=== PATIENT | male | born 1945 | race Caucasian/White ===

== ENCOUNTER 2018-01-28 10:59 | Outpatient (CLI) | payer MEDICARE, OTHER ==
--- NOTE | 2018-01-28 11:56 | RAD ---
CHEST PA AND LATERAL: History: 72-year-old male with history of dyspnea. Comparison: 04-18-15 FINDINGS: Extensive bilateral linear interstitial and reticular nodular and honeycombing changes are noted thro ughout both lungs, somewhat more prominently in the bases. The honeycombing in the bases does appear to be progressive when compared to the prior 04-18-15 study. Bullous changes noted, particularly in the left apex and upper lobe. IMPRESSION: Extensive bilateral chronic lung changes with some progressive honeycombing in the bases. No signific ant new process. POS: [facility]
== END 2018-01-28 11:00 | disposition home or self-care (01) ==
LOC: RAD 10:59
PROVIDERS: ATTEND Internal Medicine Pulmonary Disease
DX: R06.00 Dyspnea, unspecified (principal)
CPT/HCPCS: 71046

== ENCOUNTER 2018-05-25 13:02 | Outpatient (CLI) | payer MEDICARE, OTHER ==
--- NOTE | 2018-05-25 13:42 | CT ---
Exam: CT chest without contrast per low-dose cancer screening protocol HISTORY: History of smoking and nicotine dependence; shortness of breath and wheezing COMPARISON: None TECHNIQUE: Multiple contiguous axial images were obtained in a CT of the chest without contrast per l ow-dose cancer screening protocol. Sagittal and coronal reformats were performed. FINDINGS: Severe emphysematous changes are seen in the lungs. Increased interstitial lung markings are seen in the bilateral lower lobes. No focal infiltrates are seen. Pulmonary nodules: Scattered calcified granulomas are seen in the lungs. There is a 1.3 cm spiculated mass in the right lower lobe on image 129 at 235. There is a 1.4 cm area of nodular opacity adjacent to the right major fissure on image 87 of 238 whic h may represent scarring. Pleural space: No pneumothorax or pleural effusion are seen. Heart: The heart is normal in size. Mediastinum: No hilar or mediastinal lymphadenopathy appreciated on this limited noncontrast examinat ion. There are calcified right hilar and mediastinal lymph nodes. Bones: Degenerative changes are seen in the spine.. Visualized subdiaphragmatic structures: Calcifications in the spleen are from prior granulomatous dis ease.. IMPRESSION: Lung RADS category 4A-suspicious. A PET CT should be performed to evaluate for hypermetabolic activit y in the right lower lobe pulmonary nodule.
== END 2018-05-25 13:03 | disposition home or self-care (01) ==
LOC: CT 13:02
PROVIDERS: ATTEND Family Medicine
DX: Z00.00 Encounter for general adult medical examination without abnormal findings (principal); F17.211 Nicotine dependence, cigarettes, in remission
CPT/HCPCS: G0297

== ENCOUNTER → 2018-06-17 | Day surgery (SDC) | payer MEDICARE, OTHER ==
[2018-06-16 14:18] VITALS: BMI 22.0
[~2018-06-17] MED LIST: PROPOFOL 200 MG/20 ML VIAL ONE
--- NOTE | 2018-06-17 17:09 | OP ---
DATE OF PROCEDURE: 06/17/2018 PREPROCEDURE DIAGNOSIS: Screening colonoscopy. PROCEDURE PERFORMED: Colonoscopy with biopsy of ileocecal valve and hot snare polypectomy of sigmoid colon polyp. FINDINGS: 1. Atypical appearing ileocecal valve, likely lipomatous, biopsied to rule out adenomatous change. 2. 7-mm semipedunculated sigmoid colon polyp, removed by hot snare polypectomy. ANESTHESIA: TIVA. RECOMMENDATIONS: Await histopathology. Repeat colonoscopy in 5 years if this is adenoma. DESCRIPTION OF PROCEDURE: The patient was informed of the risks, benefits, and possible complications of endoscopy including perforation, reaction to medication, and aspiration. Informed consent was obtained. The patient was brought to the endoscopy suite, where he was sedated in a gradual fashion. Once he was comfortable, rectal exam performed which was normal. The endoscope was advanced through the anal canal and through the colon to the cecum, which was identified by the ileocecal valve and appendiceal orifice. The ileocecal valve was a little bit atypical in appearance. Retroflexed views appeared normal. There was some slight concern that maybe this was some adenomatous change in the bowel, so it was biopsied, but after biopsying, it appeared to be this is all probably just lipomatous, that was submitted to Pathology. The scope was then slowly removed through the remainder of the colon. There were a few diverticula scattered throughout the colon, but nonbleeding. No inflammation was seen. In the sigmoid colon, there was a 6-mm semipedunculated polyp that appeared adenoma. This was removed by hot snare polypectomy with good hemostasis. Retroflexed views in the rectum were normal. The scope was removed. The patient tolerated the procedure well. There were no complications. Job ID: [id number]
== END ==
LOC: SDC 07:39
PROVIDERS: ATTEND Internal Medicine Gastroenterology
PROC: 0DBC8ZX Excision of Ileocecal Valve, Via Natural or Artificial Opening Endoscopic, Diagnostic (ICD-10-PCS; principal; 2018-06-17)
PROC: 0DBE8ZZ Excision of Large Intestine, Via Natural or Artificial Opening Endoscopic (ICD-10-PCS; 2018-06-17)
DX: Z12.11 Encounter for screening for malignant neoplasm of colon (principal); D12.5 Benign neoplasm of sigmoid colon; K57.30 Diverticulosis of large intestine without perforation or abscess without bleeding; J44.9 Chronic obstructive pulmonary disease, unspecified; M19.90 Unspecified osteoarthritis, unspecified site; Z79.899 Other long term (current) drug therapy; Z87.891 Personal history of nicotine dependence
CPT/HCPCS: 88305; J2704

== ENCOUNTER 2018-07-02 10:49 | Outpatient (CLI) | payer MEDICARE, OTHER ==
--- NOTE | 2018-07-02 14:58 | PET ---
PET CT: HISTORY: Right lower lobe lung mass on low-dose CT scan of 05/25/2018. TECHNIQUE: PET scanning with attenuation correction was performed from the base of the brain through the proxima l thighs following the intravenous administration of 12.4 mCi [id number] in the left wris t. COMPARISON: None. CORRELATION: LDCT of 05/25/2018. FINDINGS: There is hypermetabolic activity in the 13 mm right lower lobe lung nodule noted on the CT scan with an SUV of 3.1, suspicious for malignancy. No other hypermetabolic pulmonary nodules or masses are se en. There are foci of increased uptake in the parotid glands bilaterally with an SUV of 18 on the right a nd 5 on the left. No matias hypermetabolism is seen in the neck, mediastinum, hilar regions, axillae, abdomen, or pelvis . No hypermetabolic liver, adrenal, or skeletal lesions are seen. There is physiologic activity in the GI and tracts and the visualized portions of the brain. The CT scan used for CT attenuation correction demonstrates no evidence of pleural effusions or ascit es. IMPRESSION: 1. Findings suspicious for right lower lobe malignancy. 2. Hypermetabolic lesions in the parotid glands should be evaluated with contrast-enhanced CT scan o f the neck. 3. No evidence of distant metastases. POS: [facility]
== END 2018-07-02 10:50 | disposition home or self-care (01) ==
LOC: PET 10:49
PROVIDERS: ATTEND Family Medicine
DX: J98.4 Other disorders of lung (principal); K11.8 Other diseases of salivary glands
CPT/HCPCS: 78815; A9552

== ENCOUNTER 2018-07-19 13:30 | Inpatient (IN) | payer MEDICARE, OTHER ==
[~2018-07-19 13:30] MED LIST changes: +ISOVUE-370 76%-LOCM 1 ML ONE; -PROPOFOL 200 MG/20 ML VIAL ONE
[2018-07-19] MEDS ORDERED: Lorazepam 2 MG/ML VIAL ONE ×2 (15:08→15:10)
--- NOTE | 2018-07-19 15:54 | PDOC.FPRHP ---
- History of Present Illness Chief Complaint: SOB History of Present Illness: 72 yo M who presents as a transfer of care from [facility] for persistent O2 requirement and breathlessness. He reports he first started to have symptoms a few years ago and they have progressively worsened despite stopping smoking. He' s typically on 2L NC. He has had worsening shortness of breath for 1 week but acutely worsened last night. Slight cough. Chills last night. He is on budesonide and performist scheduled BID and has albuterol PRN - often uses once a day. ED Course: ASA, Lasix 40 IV, Mg 2g, Solumedrol 125mg, Duoneb, Albuterol 5, Ativan 0.5 Trop neg x2 - Allergies/Adverse Reactions Allergies Allergy/AdvReac Type Severity Reaction Status Date / Time No Known Allergies Allergy Verified 07/19/18 17:35 - Home Medications Medication Instructions Recorded Confirmed Type Albuterol Sulfate [Ventolin Hfa] 1 puff INH BID 06/16/18 07/19/18 History Budesonide 1 vial INH BID 07/19/18 07/19/18 History Formoterol Fumarate [Perforomist] 1 vial INH BID 07/19/18 07/19/18 History - History PMHx: COPD PSHx: Knee surgery, vasectomy, shrapnel removal FHx: Mom - HTN Social: 50-75 pack year smoking history, 1 shiner/day, no drug use - Review of Systems General: reports: fever/chills, fatigue Eyes: denies: eye pain, vision changes ENT: reports: other (endorses sore throat, voice changes). denies: nasal congestion, rhinorrhea Respiratory: reports: cough, congestion, shortness of breath, exercise intolerance Cardiovascular: denies: chest pain, palpitation Gastrointestinal: denies: nausea, vomiting, diarrhea Genitourinary: denies: incontinence, dysuria Skin: denies: rashes, lesions Musculoskeletal: reports: arthritis/arthralgias. denies: pain, swelling Neurological: reports: weakness. denies: syncope - Vital signs BP: 118/79 HR: 82 RR: 28 Tmax: 97.7 Pox: 96% on 2L Wt: 70kg - Physical Exam Constitutional: NAD, awake, alert and oriented, well developed HEENT: normocephalic and atraumatic, conjunctiva clear, no scleral icterus, grossly normal hearing, oropharynx clear, other (dry MM) Neck: supple, trachea midline Heart: RRR, pulses present, no edema Lungs: other (diminished air movement with RLL crackles) Abdomen: soft, non-tender, bowel sounds present Musculoskeletal: normal structure, normal tone, ROM grossly normal Neurological: no focal deficit Skin: no rash/lesions Heme/Lymphatic: no unusual bruising or bleeding Psychiatric: normal mood and affect, good judgment and insight, intact recent and remote memory FMR H&P: Results - EKG Interpretation EKG: Normal sinus rhythm, Rate (beats per minute): 74, with no ectopics, Interpretation: normal EKG, Conduction normal, ST segments normal, T waves normal, [place] normal, Other findings include:, Possible left atrial enlargement, OK interval 168 ms QRS duration 94 ms QT/QTc 410/455 ms. - Radiology Interpretation Chest x-ray Status: image reviewed by me, report reviewed by me Additional comment: Enlarging bilateral effusions FMR H&P: A/P - Problem List (1) Acute and chronic respiratory failure with hypoxia Current Visit: Yes Status: Acute Code(s): J96.21 - ACUTE AND CHRONIC RESPIRATORY FAILURE WITH HYPOXIA (2) COPD (chronic obstructive pulmonary disease) Current Visit: Yes Status: Acute (3) Pleural effusion Current Visit: Yes Status: Acute Code(s): J90 - PLEURAL EFFUSION, NOT ELSEWHERE CLASSIFIED (4) Lung cancer Current Visit: Yes Status: Acute Code(s): C34.90 - MALIGNANT NEOPLASM OF UNSP PART OF UNSP BRONCHUS OR LUNG (5) Parotid gland enlargement Current Visit: Yes Status: Acute Code(s): K11.1 - HYPERTROPHY OF SALIVARY GLAND - Plan 72yo male with pmh of COPD presenting for acute on Chronic hypoxic respiratory failure Acute on Chronic hypoxic respiratory failure 2/2 COPD exacerbation vs enlarging b/l pleural effusions - SpO2 in 70's on RA. Currently 96% on 3L. Tachypneic - Continue supplemental O2, wean as tolerated. Maintain Sats 88-92% - CT on 05/25/18 and PET scan on 06/02/18 with no pleural effusions. - CXR today: RLL nodule, b/l effusions. Severe fibrosis - Continue home COPD meds - Duonebs q4h ROSCOE, prednisone and azithromycin for 5 day course - Admit to medical Worsening pleural effusions, suspected lung cancer - Mass in RLL seen on CT and PET 06/2018 - Following with Dr Haines outpt. No biopsy preformed yet. - Consult Pulm in AM - Ordered CT with contrast DVT ppx: SCDs Code Status: PCP: Dr Haji FMR H&P: Upper Level - Pertinent history 72 yo M patient with PMHx COPD who presents with acute worsening of shortness of breath over last week, especially since last night. Denies fever or sputum production. Increased O2 requirement reported in [place]. - Pertinent findings VSS apart from mild tachypnea CXR: BL pleural effusion Gen: awake, alert, oriented HEENT: NCAT, MMM CV: RRR, no murmur RESP: tachypneic, poor air entry diffusely ABD: belly breathing, nondistended, bowel sounds present EXT: no edema or cyanosis - Plan Date/Time: 07/19/18 1554 72 yo M here with COPD exacerbation and newly worsening BL pleural effusions 1. COPD exacerbation - Continue duonebs, steroids, abx - Will notify pulm he is here 2. Newly worsening pleural effusions - CT for newly worsening pleural effusions - Will notify pulm in a.m. - Concern for malignant effusion with h/o "spot" he was told about by Dr. Haines 3. RLL pulmonary nodule - Possible associated malignant effusion - Mgmt as above Please see Dr. De Leon' note for remainder of A/P I, Yessy Alejandro MD, PGY-3, have evaluated this patient and agree with findings/ plan as outlined by director internal control resident. Pertinent changes/additions are listed here.
[2018-07-19] MEDS ORDERED: Ondansetron ODT 4 MG TAB SL PRN (17:26)
[2018-07-19] MEDS ORDERED: Acetaminophen 325 MG TAB PO PRN ×2 (17:26→18:00)
[2018-07-19] MEDS ORDERED: Ondansetron PF 4 MG/2 ML Vial IVP PRN (17:26)
[2018-07-19 17:28] VITALS: BMI 20.7
[2018-07-19] MEDS ORDERED: Azithromycin 200 MG/5 ML Oral Suspension PO SCH (18:30)
--- NOTE | 2018-07-19 19:03 | CT ---
CT THORAX WITH CONTRAST: DATE: 07/19/2018 HISTORY: 72-year-old male with right lower lobe lung cancer COMPARISON: 05/25/2018 FINDINGS: Very severe emphysematous changes throughout the bilateral upper lobes, with lung tissue destroyed an d replaced by numerous large bullae. Severe emphysematous changes in the bilateral lower lobes. Noncalcified, spiculated, approximately 11 x 7 x 10 mm pulmonary nodule in superior segment of right lower lobe (measurements are inexact because of the irregular margins. Axial image 37 of 68, series 3; coronal image 104 of 136, series 601). This was mildly hypermetabolic on PET scan. It has not sign ificant changed. In the right lower lobe, abutting the minor fissure, there is another spiculated noncalcified pulmona ry nodule measuring 9 x 7 x 7 mm. Although its morphology is suspicious for lung cancer, it was not hypermetabolic on the PET scan. Perhaps it is too small for FDG uptake. There are other lesions that have the appearance of focal nodules on axial images, but are demonstrat ed to be flat and craniocaudally thin on coronal reconstructions, along fissures, representing scar and intrapulmonary lymph nodes. No thoracic aortic aneurysm. No adrenal nodule. No hepatosplenomegaly. No cardiomegaly or pericardial effusion. No mediastinal or hilar lymphadenopathy. No pleural effusion or pneumothorax. IMPRESSION: 1) spiculated pulmonary nodule in superior segment of right lower lobe, mildly hypermetabolic: Eviden ce for lung cancer. 2) another spiculated pulmonary nodule in the right middle lobe, which was not hypermetabolic on PET scan, perhaps too small for FDG uptake. This is suspicious for second lung cancer. 3) very severe emphysema. 4) no interval change overall since 05/25/2018
[2018-07-19] MEDS: Arformoterol 15 MCG/2 ML NEB NEB SCH (19:27)
[2018-07-19] MEDS: Budesonide 0.5 MG/2 ML NEB NEB SCH (19:27)
[2018-07-20 05:27] LABS: #Basophils 0.1 thou/uL (0.0-0.2); #Lymphocytes 1.9 thou/uL (1.20-3.40); %Basophils 0.5 % (0.0-1.0); %Eosinophils 0.1 % (0.0-10.0); %Lymphocytes 14.7 % (21.0-51.0); %Monocytes 7.7 % (0.0-10.0); %Neutrophils 77.1 % (42.0-75.0); Mean Corpuscular HGB CONC 34.2 g/dL (32.0-36.0); Mean Corpuscular Volume 99.6 fL (78.0-98.0); Mean Platelet Volume 10.1 fL (7.4-10.4); Platelet Count 181 thou/uL (130-400); RBC Distribution Width 12.8 % (11.5-14.5); Red Blood Cell (RBC) Count 4.69 mill/uL (4.70-6.10)
[2018-07-20 05:52] LABS: Anion Gap 15 mmol/L (10-20); BUN (Urea Nitrogen) 15 mg/dL (8.4-25.7); Calc. Creatinine Clearance 48 mL/min (70-130); Carbon Dioxide 25 mmol/L (23-31); Chloride 102 mmol/L (98-107); Estimated GFR-MDRD 59; Glucose 119 mg/dL (83-110); Sodium 138 mmol/L (136-145)
--- NOTE | 2018-07-20 07:28 | PDOC.FM ---
- Subjective Subjective: reports breathing improved. still needing more O2 than normal but feels much better. No cough, no fevers. - Objective Vital Signs & Weight: Vital Signs (12 hours) Temp Pulse Resp BP Pulse Ox 07/20/18 04:00 97.7 F 81 20 107/63 95 07/20/18 02:26 74 18 94 L 07/20/18 00:00 98.4 F 82 20 112/68 95 07/19/18 23:19 79 18 96 07/19/18 19:49 97.6 F 78 20 122/76 96 07/19/18 19:39 96 Weight Weight 61.745 kg I&O: 07/19/18 07/20/18 07/21/18 06:59 06:59 06:59 Intake Total 490 Output Total 450 Balance 40 Result Diagrams: 07/20/18 04:48 07/20/18 04:48 Phys Exam - Physical Examination Constitutional: NAD HEENT: PERRLA, moist MMs, sclera anicteric bibasilar crackles Cardiovascular: RRR, no significant murmur Gastrointestinal: soft, non-tender Musculoskeletal: no edema Psychiatric: normal affect, A&O x 3 Skin: cap refill <2 seconds Dx/Plan (1) Acute and chronic respiratory failure with hypoxia Code(s): J96.21 - ACUTE AND CHRONIC RESPIRATORY FAILURE WITH HYPOXIA Status: Acute (2) COPD (chronic obstructive pulmonary disease) Status: Acute (3) Lung cancer Code(s): C34.90 - MALIGNANT NEOPLASM OF UNSP PART OF UNSP BRONCHUS OR LUNG Status: Acute (4) Parotid gland enlargement Code(s): K11.1 - HYPERTROPHY OF SALIVARY GLAND Status: Acute (5) Pleural effusion Code(s): J90 - PLEURAL EFFUSION, NOT ELSEWHERE CLASSIFIED Status: Acute - Plan Plan: 72yo male with pmh of COPD presenting for acute on Chronic hypoxic respiratory failure Acute on Chronic hypoxic respiratory failure 2/2 COPD exacerbation vs enlarging b/l pleural effusions - SpO2 in 70's on RA in ED. - Non hypoxic on 3.5 L (baseline 2L) - Continue mgmt of COPD exacerbation with prednisone, azithromycin, duonebs - Initial CXR with worsening pleural effusions, CT repeat, no mention of this - Followed by Dr. Haines outpatient, will consult pulm in case worsening of respiratory status & worsening of pleural effusions due to pulmonary nodule related findings - CT on 05/25/18 and PET scan on 06/02/18 with no pleural effusions. - Continue home COPD meds Worsening pleural effusions, suspected lung cancer - Mass in RLL seen on CT and PET 06/2018 - Following with Dr Zaki lopez. No biopsy preformed yet. Patient reports plan are for repeat imaging in December - Consulted pulm, recs apprecaited - will discuss administration of lasix x1 since pt with bibasilar crackles DVT ppx: SCDs Code Status: Full PCP: Dr Haji Addendum - Attending - Attending Attestation Date/Time: 07/20/182113 I personally evaluated the patient and discussed the management with Dr. Layne. I agree with the History, Examination, Assessment and Plan documented above with any addition or exceptions noted below. The patient is still short of breath speaking in 2-3 word sentences between breaths. Will continue nebs, steroids. Consulting pulmonology with the lung nodule and pleural effusions. Will also give a dose of IV lasix to see if this helps. Pt is requiring O2 at this time.
[2018-07-20] MEDS: Budesonide 0.5 MG/2 ML NEB NEB SCH ×2 (07:49→18:16)
[2018-07-20] MEDS: Arformoterol 15 MCG/2 ML NEB NEB SCH ×2 (07:50→18:16)
[2018-07-20] MEDS ORDERED: predniSONE 20 MG TAB PO SCH (08:00)
[2018-07-20] MEDS: Enoxaparin Sodium 40 MG/0.4 ML SYRINGE SC SCH (09:52)
[2018-07-20] MEDS ORDERED: Furosemide 40 MG/4 ML VIAL SLOW IVP SCH (11:00)
[2018-07-20 12:38] LABS: Folate (Folic Acid) 14.9 ng/mL (7.0-31.4)
--- NOTE | 2018-07-20 14:01 | HP ---
ADDENDUM: Addendum to the history and physical Please see the note from Dr. Kim De Leon, for which I agree. The patient was seen, evaluated, discussed, and examined with the residents by bedside. HISTORY OF PRESENT ILLNESS: This is a 72-year-old gentleman who is being evaluated by Dr. Haines for a lung mass and felt like suspicious right lower lobe malignancy based on recent PET scan, comes in with COPD exacerbation, coughing, wheezing, and short of breath for last 3 or 4 days. No fever, and cough for the most part is nonproductive. It sounds like his home inhalers use is twice daily and then rescue nebulizers p.r.n. According to the patient, Dr. Haines wanted to wait 6 months to repeat the CT to make sure this mass does not get bigger. It sounds like Dr. Haines was not that convinced that it was cancer necessarily. Although, I do not have those records. Past medical history, past surgical history, family history, review of systems, medications, and allergies, all per Dr. De Leon' history and physical for which I agree. PHYSICAL EXAMINATION: GENERAL: He is slightly short of breath, some little bit winded on long sentences, but no major retractions, grunting, or flaring. ENT: Conjunctivae, not pale. Anicteric. Moist mucosa. CHEST: Decreased breath sounds throughout. HEART: Regular rate and rhythm. ABDOMEN: Benign. EXTREMITIES: No edema. LABORATORY DATA: Initial blood workup; white count fairly normal at 9.9, hemoglobin 17. Comprehensive metabolic panel likewise is normal. Chest x-ray shows bilateral effusions and severe fibrosis, and heart size mildly enlarged. ASSESSMENT: 1. Chronic obstructive pulmonary disease exacerbation, likely dyspnea. 2. Right lower lobe mass, possibly malignancy. 3. Bilateral effusions, potentially could be malignant. PLAN: On steroids and nebulizers. Hold off on antibiotics for now. May need to get a further cardiac workup with the effusions to further evaluate and make sure this is not potentially CHF on top of COPD. The x-rays are of poor quality and may be just need to start by repeating that. Otherwise, we will resume home medicines and inhalers. We will likely get Pulmonary involved. Job ID: [id number]
--- NOTE | 2018-07-20 14:02 | CON ---
DATE OF CONSULTATION: 07/20/2018 CONSULTING PHYSICIAN: [facility]. REASON FOR CONSULTATION: COPD exacerbation and lung nodules. HISTORY OF PRESENT ILLNESS: This patient is an extremely pleasant 72-year-old male, who came into the hospital on 07/19 with increasing shortness of breath of several weeks duration. He is on oxygen 2 L at home. He does not describe any wheezing. He is just breathless when he walks. He is using budesonide, Perforomist, and albuterol at home. He has been started on steroids and scheduled breathing treatments in the hospital. We were also consulted to go over his lung nodules. He has a 13 mm right lower lobe nodule that has been noted recently on CT scan and PET scan. He also has focal uptake on his parotid glands bilaterally. He has a remote history of smoking, having quit about 3 years ago. PAST MEDICAL HISTORY: 1. Chronic obstructive pulmonary disease. 2. Lung nodules. PAST SURGICAL HISTORY: 1. Knee surgery. 2. Vasectomy. FAMILY MEDICAL HISTORY: Remarkable for hypertension. SOCIAL HISTORY: He has a 75 pack-year history of smoking, quit three years ago. Drinks one beer a day. Does not use illicit drugs. REVIEW OF SYSTEMS: Had no fever, chills, nausea, vomiting, chest pain, hemoptysis, melena, hematochezia, hematuria, or dysuria. Remainder of 12-point review of systems were negative. PHYSICAL EXAMINATION: VITAL SIGNS: Temperature 98.4, pulse 85, respirations 20, O2 saturation 93% on 3 L, and blood pressure 127/69. GENERAL: He is awake and alert. He is in some respiratory discomfort. HEENT: Pupils react. Sclerae anicteric. Oropharynx clear. NECK: Without adenopathy or JVD. LUNGS: He has few crackles in both bases. He has poor air movement bilaterally, but no wheezing. CARDIAC: S1 and S2. Regular without murmur. ABDOMEN: Soft, nontender, and nondistended. EXTREMITIES: 1+ clubbing. No cyanosis or edema. LABORATORY DATA: White blood cell count 13, hematocrit 46.7, and platelet count 181. Sodium 138, potassium 4, chloride 102, CO2 of 25, BUN 15, creatinine 1.2, and glucose 119. I reviewed his CT scan. ASSESSMENT: 1. The patient has stable lung nodule, which is too small to really characterize it is malignant or not and will need to be followed in the clinic by Dr. Haines. 2. Chronic obstructive pulmonary disease exacerbation. PLAN: 1. Follow up lung nodules as an outpatient. 2. We would continue with steroids, breathing treatments, and antibiotics. I would switch his steroids to IV given his lack of response to the oral steroids. Job ID: [id number]
[2018-07-20] MEDS ORDERED: Clopidogrel Bisulfate 75 MG TAB ONE (17:01)
[2018-07-20] MEDS: methylPREDNISolone Sod Succ 40 MG VIAL IVP SCH (17:03)
[2018-07-20] MEDS: Azithromycin 200 MG/5 ML Oral Suspension PO SCH (17:04)
[2018-07-20] MEDS ORDERED: diphenhydrAMINE 25 MG CAP PO SCH (19:45)
[2018-07-21] MEDS ORDERED: hydrOXYzine 25 MG TAB PO SCH (00:15)
[2018-07-21] MEDS ORDERED: Melatonin 3 MG TAB PO PRN (00:26)
[2018-07-21] MEDS: methylPREDNISolone Sod Succ 40 MG VIAL IVP SCH ×5 (00:33→23:45)
[2018-07-21] MEDS: Calcium Carbonate 500 MG ChewTAB PO PRN ×2 (00:40→17:33)
[2018-07-21] MEDS ORDERED: Famotidine 20 MG TAB PO SCH (00:45)
[2018-07-21] MEDS: Budesonide 0.5 MG/2 ML NEB NEB SCH ×2 (06:51→18:29)
[2018-07-21] MEDS: Arformoterol 15 MCG/2 ML NEB NEB SCH ×2 (06:52→18:30)
--- NOTE | 2018-07-21 07:50 | PDOC.FM ---
- Subjective Subjective: Reports breathing improved, but still has to catch breath while talking. No cough, fevers, chills, no complaints otherwise. - Objective Vital Signs & Weight: Vital Signs (12 hours) Temp Pulse Resp BP Pulse Ox 07/21/18 06:53 77 20 95 07/21/18 06:52 77 20 95 07/21/18 06:51 77 20 95 07/21/18 04:00 87 22 H 97 07/21/18 02:46 88 22 H 94 L 07/20/18 23:24 84 32 H 95 07/20/18 22:58 90 20 94 L 07/20/18 20:00 97.5 F L 82 20 136/82 94 L Weight Weight 61.745 kg I&O: 07/20/18 07/21/18 07/22/18 06:59 06:59 06:59 Intake Total 490 2647 Output Total 450 2375 Balance 40 272 Result Diagrams: 07/20/18 04:48 07/21/18 08:17 Phys Exam - Physical Examination Constitutional: NAD HEENT: PERRLA, moist MMs Neck: no nodes, no JVD inspiratory crackles at lung base Cardiovascular: RRR, no significant murmur Gastrointestinal: soft, non-tender Musculoskeletal: no edema Neurological: non-focal, moves all 4 limbs Dx/Plan (1) Acute and chronic respiratory failure with hypoxia Code(s): J96.21 - ACUTE AND CHRONIC RESPIRATORY FAILURE WITH HYPOXIA Status: Acute (2) COPD (chronic obstructive pulmonary disease) Status: Acute (3) Lung cancer Code(s): C34.90 - MALIGNANT NEOPLASM OF UNSP PART OF UNSP BRONCHUS OR LUNG Status: Acute (4) Parotid gland enlargement Code(s): K11.1 - HYPERTROPHY OF SALIVARY GLAND Status: Acute (5) Pleural effusion Code(s): J90 - PLEURAL EFFUSION, NOT ELSEWHERE CLASSIFIED Status: Acute - Plan Plan: 72yo male with pmh of COPD presenting for acute on Chronic hypoxic respiratory failure Acute on Chronic hypoxic respiratory failure 2/2 COPD exacerbation vs enlarging b/l pleural effusions - SpO2 in 70's on RA in ED. - Non hypoxic on 2.5 L, continue weaning - Continue mgmt of COPD exacerbation with prednisone, azithromycin, duonebs - Repeat CXR today with minimal pleural effusions on personal read - Followed by Dr. Haines outpatient, recs apprecaited - CT on 05/25/18 and PET scan on 06/02/18 with no pleural effusions. - on home LABA and ICS -will add spiriva #Concern for parotid gland malignancy -PET scan showed hypermatabolic acitivy -Due for CT today, will arrange since in hospital Pulmonary nodules, suspected lung malingnacy - Mass in RLL seen on CT and PET 06/2018 - Following with Dr Zaki mansfieldpt. Not good candidate for bx. Patient reports plan are for repeat imaging in December - Consulted pulm, recs apprecaited - Repeat DVT ppx: SCDs Code Status: Full Dispo: not at baseline,continue clinical course and monitoring PCP: Dr Haji Addendum - Attending - Attending Attestation Date/Time: 07/21/18 1900 I personally evaluated the patient and discussed the management with Dr. Layne. I agree with the History, Examination, Assessment and Plan documented above with any addition or exceptions noted below. The patient is slowly improving. Will try to arrange for portable condenser at home. Will space out neb treatments.
[2018-07-21] MEDS: Enoxaparin Sodium 40 MG/0.4 ML SYRINGE SC SCH (08:03)
--- NOTE | 2018-07-21 08:14 | RAD ---
XR Chest 1 View Portable History: Shortness of breath Comparison: CT of the chest 2 days prior Findings: Severe stenosis changes. Honeycombing of the lung bases. Peripheral pleural scarring and no dularity along the right major fissure. Slightly limited nodule right lower lobe. No pneumothorax. Peripheral pleural thickening left upper lobe. Impression: Similar examination of the chest. Pulmonary fibrosis, severe emphysema, and lung cancer.
[2018-07-21 08:51] LABS: Anion Gap 16 mmol/L (10-20); BUN (Urea Nitrogen) 17 mg/dL (8.4-25.7); Calc. Creatinine Clearance 57 mL/min (70-130); Calcium 9.4 mg/dL (7.8-10.44); Carbon Dioxide 25 mmol/L (23-31); Chloride 98 mmol/L (98-107); Estimated GFR-MDRD 73; Glucose 144 mg/dL (83-110); Potassium 3.4 mmol/L (3.5-5.1); Sodium 136 mmol/L (136-145)
--- NOTE | 2018-07-21 09:18 | PRG ---
DATE OF SERVICE: 07/21/2018 SUBJECTIVE: Onesimo Walton this morning is awake, alert, and responsive. He said he is feeling better, less cough, less shortness of breath. He remains still quite anxious. OBJECTIVE: VITAL SIGNS: Saturations are 95% on 2 L, respiratory rate _20_, temperature 97, blood pressure 126/75. CHEST: Decreased breath sounds. Prolonged expiration. No wheezing. CARDIAC: Normal S1 and S2. No gallops. ABDOMEN: No masses. ASSESSMENT: 1. 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 2. Right lower lung nodule with an indeterminate PET scan. PLAN: The patient has severe COPD, I am not so sure he is a candidate for any kind of biopsy regarding the right lung nodule. This has been discussed with the patient at length in the office. I switched him over to oral prednisone. We will continue PT and supportive care. His overall long-term prognosis is grave. Job ID: [id number] MTDD
[2018-07-21] MEDS ORDERED: Potassium Chloride 20 MEQ TAB PO SCH (09:45)
[2018-07-21] MEDS ORDERED: Spiriva 18 MCG CAP (Box of 5 Caps) INH SCH (11:00)
--- NOTE | 2018-07-21 13:58 | CT ---
CT NECK WITH CONTRAST: Date: 07/21/18 HISTORY: 72-year-old male with hypermetabolic, FDG-avid bilateral parotid nodules found on PET scan of 9. FINDINGS: There are very severe bullous changes in the upper lobes of the bilateral lungs. There are several en hancing solid nodules in the bilateral parotid glands. They are located at the inferior aspects (tail s) of the superficial lobes bilaterally. In the right parotid tail, there is an approximately 1.5 x 1 .5 x 2.3 cm nodule. Posterior to that, there is a 1.0 x 0.8 x 1.5 cm nodule. In the contralateral left parotid tail, there is a 1.2 x 1.2 x 1.8 cm nodule. Abutting its anteromedi al surface, there is a 0.8 x 0.6 x 0.9 cm nodule. Located posteriorly in the left parotid tail, there is a 0.9 x 0.5 x 1.0 cm nodule. All of these nodu les have similar degree of mild-moderate enhancement. The largest on each side probably correspond to the FDG-avid lesions. No intraparotid or extraparotid ductal dilation. No sialolith. Submandibular glands are unremarkable. Calcifications of bilateral palatine tonsils. Retropharyngeal, parapharyngeal, carotid, perivertebral, posterior cervical, and backend developer, spaces, are unremarkable . No significant extraparotid cervical lymphadenopathy. No major pathology of larynx. No destructive osseous lesion of mandible. IMPRESSION: 1. Several solid nodules in the superficial lobes of the bilateral parotid glands, all at the paroti d tails. 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 Differential diagnosis includes acin ic cell carcinoma. The largest nodule on the right is probably accessible by ultrasound-guided fine n eedle aspiration. 2. Very severe emphysema. POS: [facility]
[2018-07-21] MEDS: Azithromycin 200 MG/5 ML Oral Suspension PO SCH (17:33)
[2018-07-21] MEDS ORDERED: Melatonin 3 MG TAB PO SCH (21:00)
[2018-07-22] MEDS: methylPREDNISolone Sod Succ 40 MG VIAL IVP SCH (05:45)
[2018-07-22] MEDS: Arformoterol 15 MCG/2 ML NEB NEB SCH (06:50)
[2018-07-22] MEDS: Budesonide 0.5 MG/2 ML NEB NEB SCH (06:54)
[2018-07-22] MEDS ORDERED: Ipratropium Bromide 2.5 ml Neb NEB SCH (07:00)
[2018-07-22] MEDS: Enoxaparin Sodium 40 MG/0.4 ML SYRINGE SC SCH (07:51)
--- NOTE | 2018-07-22 09:30 | PRG ---
DATE OF SERVICE: 07/22/2018 SUBJECTIVE: This morning, he is better, he is eager to go home. Less cough, less shortness of breath. He was switched over to oral prednisone. OBJECTIVE: VITAL SIGNS: His blood pressure is 124/69, O2 saturation 95% on 2 L, respiratory rate 16, pulse 78, and temperature 96. CHEST: Decreased breath sounds. No wheezing. CARDIAC: Normal S1 and S2. No gallops. ABDOMEN: No masses. IMPRESSION: 1. End-stage chronic obstructive pulmonary disease. 2. Lung nodules, right lung, probably neoplastic, positive PET scan, too small to undergo any workup. Soft tissue neck CT was done, which had shown evidence of some parotid nodules, bilateral, of unknown significance. PLAN: PO medicine, neb treatments. He has several different medications at home, which he can continue. He can see Dr. Haines in the office in several weeks. Job ID: [id number]
[2018-07-22 10:43] LABS: Potassium 4.2 mmol/L (3.5-5.1)
--- NOTE | 2018-07-22 11:22 | PDOC.FM ---
- Subjective Subjective: Pt reports feeling 90% better since admission. Still needing 2L O2 and some SOB with walking to bathroom. No coughing, fevers. - Objective Vital Signs & Weight: Vital Signs (12 hours) Temp Pulse Resp BP Pulse Ox 07/22/18 07:20 96.8 F L 78 16 124/69 95 07/22/18 07:01 75 22 H 96 07/22/18 06:54 73 22 H 96 07/22/18 06:53 71 22 H 96 07/22/18 06:50 78 22 H 96 07/22/18 00:45 89 18 92 L Weight Weight 61.745 kg I&O: 07/21/18 07/22/18 07/23/18 06:59 06:59 06:59 Intake Total 2647 Output Total 2375 Balance 272 Result Diagrams: 07/20/18 04:48 07/22/18 10:01 Dx/Plan (1) Acute and chronic respiratory failure with hypoxia Code(s): J96.21 - ACUTE AND CHRONIC RESPIRATORY FAILURE WITH HYPOXIA Status: Acute (2) COPD (chronic obstructive pulmonary disease) Status: Acute (3) Lung cancer Code(s): C34.90 - MALIGNANT NEOPLASM OF UNSP PART OF UNSP BRONCHUS OR LUNG Status: Acute (4) Parotid gland enlargement Code(s): K11.1 - HYPERTROPHY OF SALIVARY GLAND Status: Acute (5) Pleural effusion Code(s): J90 - PLEURAL EFFUSION, NOT ELSEWHERE CLASSIFIED Status: Acute - Plan Plan: 72yo male with pmh of COPD presenting for acute on Chronic hypoxic respiratory failure Acute on Chronic hypoxic respiratory failure 2/2 COPD exacerbation vs enlarging b/l pleural effusions - SpO2 in 70's on RA in ED. - Continue mgmt of COPD exacerbation with prednisone, azithromycin, duonebs - Repeat CXR today with minimal pleural effusions on personal read - Followed by Dr. Haines outpatient, recs apprecaited - CT on 05/25/18 and PET scan on 06/02/18 with no pleural effusions. - on home LABA and ICS - working with CM to get approval of spiriva/incruse - On 2L of [place] will likely be new baseline, has home O2, is brniging #Concern for parotid gland malignancy -PET scan showed hypermatabolic acitivy -Shows warthin's tumors vs acinic cell CA, will f/u outpt for this Pulmonary nodules, suspected lung malingnacy - Mass in RLL seen on CT and PET 06/2018 - Following with Dr Zaki lopez. Not good candidate for bx. Patient reports plan are for repeat imaging in December - Consulted pulm, recs apprecaited DVT ppx: SCDs Code Status: Full Dispo: improved today, d/c home pending obtaining oxygen PCP: Dr Haji Addendum - Attending - Attending Attestation Date/Time: 07/22/18 1150 I personally evaluated the patient and discussed the management with Dr. Layne. I agree with the History, Examination, Assessment and Plan documented above with any addition or exceptions noted below. The patient is still requiring oxygen but this is likely his new baseline. Will need outpt ent f/u for CT results. will d/c home and f/u with me next week.
[2018-07-22 13:54] VITALS: BP 135/70; TEMP 97.8
--- NOTE | 2018-07-23 06:03 | DIS ---
DATE OF ADMISSION: 07/19/2018 DATE OF DISCHARGE: 07/22/2018 ADMITTING ATTENDING: Yefri De La Torre MD DISCHARGE ATTENDING: Sylwia Haji MD RESIDENT: Fide Layne MD, PGY-1. CONSULTS: Pulmonology, Preston Tadeo Haines MD PROCEDURES AND IMAGIN. CT chest: Spiculated pulmonary nodule in superior segment right lower lobe, mildly hypermetabolic, evidence for lung cancer. At the spiculated pulmonary nodule in right middle lobe, not hypermetabolic on PET scan, suspicious for second lung cancer. Very severe emphysema. No interval change since last admission on 05/25/2018. 2. Soft tissue neck CT: Severe cell nodules in superficial lobes of bilateral parotid gland at the parotid tail. Diagnosis likely Warthin's tumors, but differential includes acinic cell carcinoma. PRIMARY DIAGNOSES: 1. Acute hypoxic respiratory failure on 2 L, likely secondary to acute chronic obstructive pulmonary disease exacerbation. 2. Very severe emphysema. 3. Bilateral parotid gland nodules: Warthin's tumors versus acinic cell carcinoma. SECONDARY DIAGNOSES: 1. Chronic obstructive pulmonary disease. 2. Pulmonary nodules, suspected lung malignancy. DISCHARGE MEDICATIONS: New medications: 1. Spiriva HandiHaler 18 mcg inhaled daily, patient unable to afford. 2. Tylenol. 3. Azithromycin 250 mg, two tabs. 4. Tums. 5. DuoNeb 3 mL nebs q.6 hours p.r.n. for shortness of breath or wheezing. 6. Melatonin. 7. Prednisone taper 40 mg for 4 days, 30 for 4, 20 for 4, and 10 for 4. Resume home medications; 1. Ventolin HFA. 2. Formoterol. 3. Budesonide 0.5 inhaled b.i.d. HISTORY OF PRESENT ILLNESS/HOSPITAL COURSE: Mr. Onesimo Walton is a pleasant 72-year-old male with history of severe emphysema, who came in short of breath. He has been intermittently requiring increased use of oxygen at home up to 2 L but in the ER, was found to be hypoxic in 70% and was placed on 4 L. He was admitted for acute on chronic hypoxic respiratory failure likely secondary to acute COPD exacerbation. He was started on steroids, azithromycin, and breathing treatments. Of note, the patient was undergoing workup with Pulmonology for right lower lobe and middle lobe pulmonary nodules, which was seen on CT this admission. Over the course of couple of days, the patient slowly improved but ultimately did require 2 L and he remained hypoxic. Pulmonology recommended outpatient followup in regard to his pulmonary nodules. The patient received soft tissue neck CT, which showed bilateral parotid gland tumors. Continue outpatient workup. The patient was started on Spiriva. However, due to insurance issues neither that nor Incruse were covered and the patient could not afford it. He will see Dr. Haji and she would take care of him in regard to medications and to follow up early next week. It is likely that patient's breathing baseline may not recover to what it was previously. He has very severe emphysema in addition to pulmonary nodules, which could all be redefining his new baseline. Per Pulmonology, his prognosis is poor. Fortunately, he is a very pleasant man, wish him all the best. DISPOSITION: Stable. DISCHARGE INSTRUCTIONS: 1. Location: Home. 2. Diet: Regular diet. 3. Activity: Cardiopulmonary limitations, advance as tolerated. 4. Followup: Please follow up with Dr. Haji, PCP, in 5 days. Please follow up with Dr. Haines, Pulmonology, in 1 week. Please call insurance companies to see if they will help cover any of the medications you try to discharge him with, like a LAMA. Job ID: [id number]
[2018-07-23] MEDS ORDERED: predniSONE 20 MG TAB PO SCH (08:00)
== END 2018-07-22 14:21 | disposition home or self-care (01) | DRG 189 ==
LOC: ERS 13:30 → ERHOLD 15:59 → T4-B 17:24
PROVIDERS: ADMIT Family Medicine; ATTEND Family Medicine
DX: J96.21 Acute and chronic respiratory failure with hypoxia (principal); C34.31 Malignant neoplasm of lower lobe, right bronchus or lung; J91.0 Malignant pleural effusion; J43.9 Emphysema, unspecified; F17.210 Nicotine dependence, cigarettes, uncomplicated; D11.9 Benign neoplasm of major salivary gland, unspecified; Z98.52 Vasectomy status; Z79.51 Long term (current) use of inhaled steroids; Z79.899 Other long term (current) drug therapy
CPT/HCPCS: 36415; 70491; 71045; 71260; 80048; 82607; 82746; 84132; 84145; 85025; 93005; 94640; 94760; 96374; J1650; J1940; J2060; J2920; J7512; J7620; J7626; Q0163; Q9966

== ENCOUNTER 2018-08-18 14:52 | Outpatient (CLI) | payer MEDICARE, OTHER ==
--- NOTE | 2018-08-18 15:44 | RAD ---
TWO VIEWS OF THE CHEST: 08/18/18 COMPARISON: 01/28/18 HISTORY: Dyspnea. FINDINGS: Two views of the chest show normal sized cardiomediastinal silhouette. Diffuse increased interstitial markings are present. There is no evidence of consolidation, mass, or pleural effusion. IMPRESSION: 1. No evidence of acute cardiopulmonary disease. 2. Chronic interstitial lung disease. POS: C
== END 2018-08-18 14:53 | disposition home or self-care (01) ==
LOC: RAD 14:52
PROVIDERS: ATTEND Internal Medicine Pulmonary Disease
DX: R06.00 Dyspnea, unspecified (principal); J84.9 Interstitial pulmonary disease, unspecified
CPT/HCPCS: 71046